=== PATIENT | female | born 1985 | race Caucasian/White ===

== ENCOUNTER → 2021-09-24 09:14 | Outpatient (CLI) | payer BC, SELFPAY ==
--- NOTE | ~2021-09-24 | MMUS_ITS ---
EXAMINATION: MM diagnostic karen BI w justin, US breast BI limited HISTORY: Pain in the upper outer quadrant of the right breast TECHNIQUE: Craniocaudal, mediolateral, and mediolateral oblique 3-D tomosynthesis images of the breas ts were performed and synthetic 2-D images were generated. CAD analysis was submitted and interpreted . High resolution limited bilateral breast ultrasound was performed. COMPARISON: No prior mammogram is currently available for comparison. BREAST PARENCHYMAL COMPOSITION: The breasts are heterogeneously dense, which may obscure small masses . FINDINGS: MAMMOGRAPHIC FINDINGS: Right breast: There is a 4 mm mass in the posterior third of the upper-outer quadrant breast which ap pears to have a central hypoechoic component. There is a 4 mm low-density circumscribed mass in the m iddle third of the breasts at the 9:00 location 4 cm from the nipple. No suspicious calcification or architectural distortion are identified. Left breast: There is a 6 mm oval, circumscribed, low density mass in the anterior third of the lower inner breast at the 7:00 location 5 cm from the nipple. No suspicious calcification or architectural distortion are identified. ULTRASOUND: Right breast: A 4 mm mass at the 9:00 location 5 cm from the nipple has a sonographic appearance comp atible with an intramammary lymph node. Cysts are noted at the 9:00 location 1 cm from the nipple and near the areola. Left breast: There is a 4 mm x 2 mm cyst at 8:00 location 1 cm from the nipple. A 5 mm cyst is seen a djacent to the nipple. IMPRESSION: 1. No specific mammographic or sonographic correlate is identified for the patient's right breast hadley n. Further evaluation at this time should be based on clinical assessment. Continued follow-up physic al examination is recommended. 2. Recommend routine screening mammography beginning at age 40. BI-RADS Category 2: Benign finding(s). Reviewed, dictated and finalized at location A. TESTER IMPRESSION: 1. No specific mammographic or sonographic correlate is identified for the nicolás ent's right breast pain. Further evaluation at this time should be based on cli nical assessment. Continued follow-up physical examination is recommended. 2. Recommend routine screening mammography beginning at age 40. BI-RADS Category 2: Benign finding(s).
== END ==
PROVIDERS: Visit Provider Nurse Practitioner Obstetrics & Gynecology
DX: N64.4 Mastodynia (principal)
CPT/HCPCS: 76642; 77061; 77062; 77065; 77066; G0279